=== PATIENT | female | born 2000 | race Caucasian/White ===

== ENCOUNTER 2020-07-02 00:23 | Observation (INO) | payer OTHER ==
[~2020-07-02] VITALS: Ht 157.5 cm; Wt 60.8 kg
[2020-07-02 00:34] VITALS: Ht 157.5 cm; Wt 60.8 kg
[2020-07-02 04:26] LABS: BASOPHIL % 0.4 % (0-2); PLATELET COUNT 307 x10^3mcL (130-400); RED CELL DISTRIBUTION WIDTH 12.9 % (11.5-14.5)
[2020-07-02 05:29] LABS: CALCIUM 9.2 mg/dL (8.5-10.1); CARBON DIOXIDE 27.3 mmol/L (21-32); CHLORIDE SERUM 102 mmol/L (98-107); CREATININE SERUM 0.7 mg/dL (0.6-1.0); GFR1 > 60 mL/min; GLUCOSE SERUM 91 mg/dL (74-106); POTASSIUM SERUM 3.5 mmol/L (3.5-5.1); SODIUM SERUM 137 mmol/L (136-145)
[2020-07-02 05:34] LABS: ALBUMIN 3.8 g/dL (3.4-5.0); ALKALINE PHOSPHATASE 73 U/L (46-116); ALT/SGPT 15 U/L (14-59); AST/SGOT 14 U/L (15-37); BILIRUBIN TOTAL 0.2 mg/dL (0.20-1.00); TOTAL PROTEIN, SERUM 7.8 g/dL (6.4-8.2)
[2020-07-02 09:28] VITALS: BP 124/72
[2020-07-02 16:42] VITALS: BP 118/64
== END 2020-07-02 18:41 | disposition home or self-care (01) ==
LOC: ED 00:23 → MU 04:21
PROVIDERS: Emergency Medicine; ADMIT Internal Medicine; ATTEND Internal Medicine
DX: R10.2 Pelvic and perineal pain (principal); N83.201 Unspecified ovarian cyst, right side
CPT/HCPCS: G0378; J2405; J3010; J7030; Q0092

== ENCOUNTER 2020-08-24 00:26 | Emergency (ER) | payer OTHER ==
[~2020-08-24] VITALS: Ht 157.5 cm; Wt 61.4 kg
[2020-08-24 00:34] VITALS: Ht 157.5 cm; Wt 61.4 kg
[2020-08-24 01:53] LABS: UA SPECIFIC GRAVITY <=1.005 (1.005-1.035); microscopic required? YES; urine erythrocyte TRACE (NEGATIVE)
[2020-08-24 04:04] VITALS: BP 123/63
== END 2020-08-24 04:04 | disposition home or self-care (01) ==
LOC: ED 00:26
PROVIDERS: Specialist
DX: N72 Inflammatory disease of cervix uteri (principal); N83.201 Unspecified ovarian cyst, right side
CPT/HCPCS: 87491; 87591; J0696; Q0092

== ENCOUNTER 2021-01-16 23:28 | Emergency (ER) | payer OTHER ==
[~2021-01-16] VITALS: Ht 157.5 cm; Wt 65.8 kg
[2021-01-16 23:44] VITALS: Ht 157.5 cm; Wt 65.8 kg
[2021-01-17] MEDS ORDERED: NAPROSYN500 MG PO (01:28)
[2021-01-17 02:13] VITALS: BP 116/78
== END 2021-01-17 02:08 | disposition home or self-care (01) ==
LOC: ED 23:28
DX: S09.8XXA Other specified injuries of head, initial encounter (principal); V43.52XA Car driver injured in collision with other type car in traffic accident, initial encounter; Y93.I9 Activity, other involving external motion; Y92.413 State road as the place of occurrence of the external cause; Y99.8 Other external cause status
CPT/HCPCS: J1885